=== PATIENT | male | born 1970 | race Caucasian/White ===

== ENCOUNTER 2019-06-28 20:10 | Emergency (ER) | payer OTHER, SELFPAY ==
--- NOTE | 2019-06-28 20:13 | W.ED.GENAD ---
Discharge Plan Disposition Patient Disposition: HOME Condition: Good Discharge Details Chief Complaint: RashLesion Clinical Impression: Condyloma acuminatum of penis Primary Care Provider: Chad Hammer ED Provider: Teja Rockwell Meds and New Rx's Prescriptions: New sinecatechins 15 % ointment 1 applic TP TID Qty: 30 RF: 0 Discharge Instructions Instructions: Sinecatechins (On the skin), Genital Warts (ED) Additional Instructions: You will need to follow up with a PCP or a urologist if this ointment does not work. Return to ED for pain/swelling to area being treated, testicle pain, discharge, abdominal pain. Referrals: Jp Blackwell MD [ [facility] STAFF PHYSICIAN] - Chad Hammer MD [Primary Care Provider] - Medical Decision Making Patient with genital warts. Will prescribe topical cream but will need follow-up as quite possible this will not work. He reports no primary care though he has used [facility] in the past. He also choose to follow-up with urology. Return to ED if reaction from the medication, ulcerations, abdominal pain, other problems. HPI General Mode of arrival: ambulatory. Date/Time Provider Initiated Documentation: 06/28/19 20:13. Limitations to Documentation: no limitations. Information obtained by: patient and RN notes reviewed. HPI Narrative: Patient presents to ED with complaints of bumps on his penis. They have been present for 4 to 5 months. They are not painful. There is no swelling. There is no discharge. There is no testicular pain. He has not had sexual relations for the last 3 years. Related Data Home Medications Medication Instructions Recorded Confirmed sinecatechins 1 applic TP TID #30 gm 06/28/19 Previous Rx's Medication Instructions Recorded sinecatechins 1 applic TP TID #30 gm 06/28/19 Allergies Allergy/AdvReac Type Severity Reaction Status Date / Time No Known Allergies Allergy Unverified 06/28/19 20:22 Review of Systems Gastrointestinal Denies abdominal pain Genitourinary Denies hematuria, Reports genital lesions, Denies genital pain, Denies dysuria, Denies penile discharge, Denies scrotal swelling, Denies testicular mass and Denies testicular pain [facility] Surgical History S/P hernia repair (Acute) Social History Smoking/Tobacco Use Status: Current every day Tobacco Type: cigarettes Tobacco: How many years used: 20 Alcohol Intake: current Alcohol Intake frequency: holidays/special occasions only Drug use: Daily Substance use type: marijuana Do you feel safe at home: Yes Do you feel safe in your relationship?: Yes Exam Const General: cooperative, comfortable and no acute distress Orientation: alert and oriented x3 Male General Exam: Yes normal external exam Penis: condyloma, not erythematous, no pustules, no ulcerations and no vesicles Meatus: meatus normal Scrotum: scrotum normal
[2019-06-28 20:16] VITALS: BP 133/90; PULSE 94; RESP 18; TEMP 35.9; O2SAT 97
== END 2019-06-28 20:55 | disposition home or self-care (01) ==
PROVIDERS: Emergency Provider Emergency Medicine; PCP Family Medicine
DX: A63.0 Anogenital (venereal) warts (principal)
CPT/HCPCS: 99283

== ENCOUNTER 2021-10-13 16:30 | Outpatient (REF) | payer OTHER, SELFPAY ==
[2021-10-13 21:58] LABS: Bilirubin Negative (Negative); Blood Negative (Negative); Clarity Clear (Clear); Glucose Negative (Negative); Ketones Negative (Negative); Leukocyte Esterase Negative (Negative); Nitrite Negative (Negative); Specific Gravity 1.015 (1.005-1.025); Urobilinogen 0.2 EU/dL (Up TO 0.2); pH 6.5 (5-8)
[2021-10-13 22:03] LABS: HCT 42.3 % (40.0-50.0); HGB 14.3 g/dL (13.5-17.5); MCH 31.4 pg (27.0-33.0); MCHC 33.8 % (32.0-36.0); MCV 92.8 fL (80-95); MPV 10.2 fL (8.0-11.0); Platelet Count 379 10^3/uL (130-400); RBC 4.56 10^6/uL (4.36-5.78); RDW 13.4 % (11.8-14.1); RDW-SD 46.2 fL; WBC 12.63 10^3/uL (4.4-10.8)
[2021-10-13 22:22] LABS: ALT 33 U/L (16-63); AST 20 U/L (15-37); Alkaline Phosphatase 37 U/L (46-116); Anion Gap 7.2 mmol/L (3-11); BUN 18 mg/dL (7-18); Bilirubin, Total 0.3 mg/dL (0.2-1.0); CO2 28.8 mmol/L (21.0-32.0); CREATININE 0.9 mg/dL (0.70-1.30); Calcium 8.9 mg/dL (8.5-10.1); Calculated LDL 99 mg/dL (<100); Chloride 103 mmol/L (98-107); Cholesterol 189 mg/dL (<200); Glucose 88 mg/dL (74-106); HDL Cholesterol 40 mg/dL (40-60); Potassium 4.2 mmol/L (3.5-5.1); Sodium 139 mmol/L (136-145); Total Protein 6.8 g/dL (6.4-8.2); Triglyceride 252 mg/dL (<150)
[2021-10-15 09:42] LABS: Hepatitis C Ab w Rflx HCV PCR Negative (Negative)
[2021-10-15 10:04] LABS: HIV-1/2 Ag & Ab Screen Negative (Negative)
== END 2021-10-13 16:31 | disposition home or self-care (01) ==
LOC: NCHCN 16:30
PROVIDERS: Visit Provider Family Medicine
DX: Z00.00 Encounter for general adult medical examination without abnormal findings (principal); R80.9 Proteinuria, unspecified; Z11.59 Encounter for screening for other viral diseases; Z11.4 Encounter for screening for human immunodeficiency virus [HIV]
CPT/HCPCS: 80053; 80061; 85027; 86803; 87389; 81003